=== PATIENT | male | born 1990 | race Hispanic/Latino ===

== ENCOUNTER 2024-11-28 03:50 | Inpatient (IN) | payer OTHER, SELFPAY ==
[2024-11-28] MEDS ORDERED: cefTRIAXone (ROCEPHIN) 2 GM VIAL ONE (04:15)
[2024-11-28 04:17] LABS: Bilirubin Neg (Negative); Blood, Urine 25 (Negative); Clarity Clear (Clear); Glucose, Urine (Dipstick) Normal (Negative); Ketone, Urine Negative (Negative); Leukocyte 25 (Negative); Nitrite Negative (Negative); Protein, Urine (Dipstick) 30 mg/dl (Neg-Trace); Specific Gravity, Urine 1.015 (1.005-1.030)
[2024-11-28 04:22] LABS: #Basophils 0.04 10x3/uL (0.0-0.2); #Eosinophils 0.03 10x3/uL (0.0-0.5); #Monocytes 2.27 10x3/uL (0.0-1.1); #Neutrophils 19.91 10x3/uL (1.5-8.4); %Basophils 0.2 % (0.0-2.0); %Eosinophils 0.1 % (0.0-6.0); %Lymphocytes 5.9 % (18.0-47.0); %Monocytes 9.5 % (0.0-10.0); %Neutrophils 83.2 % (40.0-75.0); Hematocrit 43.4 % (38.8-50.0); Hemoglobin 14.9 g/dL (13.5-17.5); Mean Corpuscular HGB CONC 34.3 g/dL (32.0-36.0); Mean Corpuscular Volume 87.3 fL (81.2-95.1); Mean Platelet Volume 10.1 fL (7.4-10.4); Platelet Count 220 10x3/uL (150-450); RBC Distribution Width 12.3 % (11.5-14.5); Red Blood Cell (RBC) Count 4.97 10x6/uL (4.32-5.72); White Blood Cell (WBC) Count 23.93 10x3/uL (3.5-10.5)
[2024-11-28 04:29] LABS: Anion Gap 18 mmol/L (10-20); BUN (Urea Nitrogen) 11 mg/dL (8.9-20.6); Calc. Creatinine Clearance 0 mL/min (70-130); Carbon Dioxide 19 mmol/L (22-29); Chloride 100 mmol/L (98-107); Estimated GFR 64; Glucose 107 mg/dL (70-105); Potassium 3.8 mmol/L (3.5-5.1); Sodium 133 mmol/L (136-145)
[2024-11-28] MEDS ORDERED: Acetaminophen 500 MG TAB ONE (04:33)
[2024-11-28 04:36] LABS: CAUTI Indications for Culture Fever or rigors; RBC/HPF 0-3 HPF (0-3); Squamous Epithelial 0-3 HPF (0-3)
[2024-11-28 04:37] LABS: Bacteria/HPF 4+ HPF (None Seen); Mucous/LPF 1+ LPF (<2+)
[2024-11-28 04:41] LABS: Urine Culture Reflex No No
[2024-11-28] MEDS ORDERED: Communication Order-Pharmacy FS PRN (05:36)
[2024-11-28] MEDS ORDERED: Ondansetron ODT 4 MG TAB PO PRN (05:44)
[2024-11-28] MEDS ORDERED: Melatonin 3 MG TAB PO PRN (05:44)
[2024-11-28] MEDS ORDERED: Vancomycin 1.25 GM in Sodium Chloride 0.9% 500 ML IVPB SCH (05:45)
[2024-11-28] MEDS ORDERED: Morphine 2 MG/ML VIAL SLOW IVP PRN (05:50)
[2024-11-28 06:04] LABS: Magnesium 1.5 mg/dL (1.6-2.6)
[2024-11-28 06:15] VITALS: BMI 24.9
[2024-11-28] MEDS: Lactated Ringer's 1,000 ML IV SCH (06:33)
[2024-11-28] MEDS: Potassium Chloride 20 MEQ in Premix 1 BAG IVPB SCH (06:33)
[2024-11-28] MEDS: VANCOMYCIN 1.25 GM/250 ML BAG 1.25 GM in Premix 1 BAG IVPB SCH (06:46)
[2024-11-28] MEDS: Morphine 4 MG/ML VIAL SLOW IVP PRN (08:10)
[2024-11-28] MEDS: Ondansetron PF 4 MG/2 ML Vial IVP PRN (08:10)
[2024-11-28] MEDS: Magnesium 2 GM/50 ML(in water) 2 GM in Premix 1 BAG IVPB SCH (08:12)
[2024-11-28] MEDS: Cefepime 2 GM in Sodium Chloride 0.9% 100 ML IVPB SCH (08:12)
[2024-11-28] MEDS: Enoxaparin 40 MG (0.4 mL) SYRINGE SC SCH (08:17)
[2024-11-28] MEDS ORDERED: Iopamidol 370 76% 100 ML VIAL ONE (10:00)
[2024-11-28] MEDS: Acetaminophen 325 MG TAB PO PRN (11:09)
[2024-11-28 11:17] VITALS: BP 127/65; TEMP 103
[2024-11-28] MEDS ORDERED: Vancomycin HCl 750 MG in Sodium Chloride 0.9% 250 ML 250 ML IVPB SCH (18:45)
[2024-11-28] MEDS ORDERED: Cefepime 2 GM in Sodium Chloride 0.9% 100 ML IVPB SCH (20:00)
== END 2024-11-28 11:50 | disposition still patient (30) | DRG 872 ==
LOC: CSHERS 03:50 → CSHTELE 05:36
PROVIDERS: ADMIT Family Medicine; ATTEND Internal Medicine
DX: A41.9 Sepsis, unspecified organism (principal); N10 Acute pyelonephritis; N17.9 Acute kidney failure, unspecified; Z98.890 Other specified postprocedural states; F17.200 Nicotine dependence, unspecified, uncomplicated; F17.210 Nicotine dependence, cigarettes, uncomplicated; Z87.448 Personal history of other diseases of urinary system
CPT/HCPCS: 36415; 74178; 80048; 81001; 83605; 83735; 85025; 87040; 87077; 87086; 87186; 87428; 96374; J0692; J0696; J1650; J2270; J2405; J3370; J3475; J3480; J7120; Q9967